=== PATIENT | female | born 1960 | race Caucasian/White ===

== ENCOUNTER 2016-03-25 13:20 | Emergency (ER) | payer OTHER ==
[2016-03-25 14:06] VITALS: PULSE 75
--- NOTE | 2016-03-25 15:35 | UCPHY ---
H & P Time Seen by Provider: 03/25/16 15:31 Patient Type: New HPI/ROS: At work the other day she had her left foot run over by a cart. She sustained a injury and bruising without bleeding to the left little toe. She has had pain with weight-bearing ever since. She go to sleep last night. Did not require any pain medicines, declined any narcotics at this time. Was able to sleep with the foot underneath the covers. 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 She is scheduled for 2-12 or shifts on Sunday and Sunday. ROS: No fever or chills No other injury to foot, or ankle or extremity Smoking Status: Never smoked Physical Exam: General Appearance: Alert, no distress. Afebrile. Extremities: There is mild soft tissue swelling and erythema without warmth associated with the left little toe as well as into the MTPJ. There is no deformity. The skin is intact. No subungual hematoma Neurological: NV intact. Skin: Skin is intact. Warm and dry, no rashes. no lymphangitis. . Constitutional: Initial Vital Signs Temperature (C) 36.7 C 03/25/16 14:03 Heart Rate 75 03/25/16 14:03 Respiratory Rate 16 03/25/16 14:03 Blood Pressure 132/85 H 03/25/16 14:03 O2 Sat (%) 96 03/25/16 14:03 O2 Delivery Mode Room Air Allergies/Adverse Reactions: Penicillins Allergy (Severe, Verified 03/25/16 14:07) Rash Sulfa (Sulfonamide Antibiotics) Allergy (Severe, Verified 03/25/16 14:07) Anaphylaxis NSAIDS (Non-Steroidal Anti-Inflamma Allergy (Intermediate, Verified 03/25/16 14: 07) Other-Enter Comments Home Medications: Medication Instructions Recorded Diovan 03/25/16 Medical Decision Making - Diagnostics Imaging: My Plain Film Review: Plain film of left foot 3 view series. Interpreted by radiologist. Films reviewed me. negative for fracture Differential Diagnosis: The differential diagnosis includes but is not limited to: Fracture, Sprain, Strain, Dislocation, Nerve injury Departure - Departure Disposition: Home, Routine, Self-Care Clinical Impression: Contusion of toe of left foot Qualifiers: Encounter type: initial encounter Toe: lesser toe Damage to nail status: without damage Qualified Code(s): S90.122A - Contusion of left lesser toe(s) without damage to nail, initial encounter Condition: Good Instructions: Foot Contusion (ED) Additional Instructions: Ice, elevate, avoid restrictive shoe wear. Referrals: Tiffanie Burger MD [Primary Care Provider] - As per Instructions Stand Alone Forms: Work Excuse - PQRS PQRS Measurement: Not applicable
[2016-03-25 15:46] VITALS: BP 132/86; RESP 20; TEMP 98.2; O2SAT 95
== END 2016-03-25 15:44 | disposition home or self-care (01) ==
LOC: CED 13:20
DX: S90.122A Contusion of left lesser toe(s) without damage to nail, initial encounter (principal); W23.0XXA Caught, crushed, jammed, or pinched between moving objects, initial encounter
CPT/HCPCS: 73630-PO; 99203-PO; G0463-PO